=== PATIENT | female | born 1940 | race Two or more races ===

== ENCOUNTER 2020-04-17 18:47 | Emergency (ER) | payer OTHER ==
[~2020-04-17] VITALS: Ht 165.1 cm; Wt 61.2 kg
[2020-04-17 19:51] VITALS: Ht 165.1 cm; Wt 61.2 kg
[2020-04-17 21:48] VITALS: BP 134/89
== END 2020-04-17 21:48 | disposition home or self-care (01) ==
LOC: ED 18:47
DX: S90.111A Contusion of right great toe without damage to nail, initial encounter (principal); W18.30XA Fall on same level, unspecified, initial encounter; Y93.89 Activity, other specified; Y92.89 Other specified places as the place of occurrence of the external cause; Y99.8 Other external cause status
CPT/HCPCS: Q0092